=== PATIENT | female | born 1985 | race Caucasian/White ===

== ENCOUNTER 2017-10-21 10:41 | Emergency (ER) | payer SELFPAY ==
[~2017-10-21] VITALS: Ht 157.5 cm; Wt 132.4 kg
[~2017-10-21 10:41] MED LIST: AEROECLIPSE1 EACH MC; ALBUTEROL SULF8.5 GM IH; AMOXICILLIN500 MG PO; B COMPLETE1 EACH PO; CARAFATE100 MG/ML PO; DOXYCYCLINE HY100 M3 PO; LORTAB 5-325 M1 EACH PO; NAPROSYN500 MG PO; NICOTINE PATCH1 EAC2 TD; NOHOMEMEDS; PREDNISONE20 MG PO; PROMETHAZINE HC25 M1 PO; PROVENTIL,2.5 MG/3 M IH; RANITIDINE HCL150 M1 PO; WELLBUTRIN XL300 MG PO; ZITHROMAX250 MG PO; ZOFRAN4 MG PO
[2017-10-21 12:19] LABS: HEMATOCRIT 39.4 % (36.0-46.0); MCH 26.5 PG (29.0-34.0); MCHC 33.2 G/DL (30.0-36.0); MCV 79.8 FL (83-99); MEAN PLAT.VOLUME 10.1 uM^3 (9.5-12.4); PLATELET COUNT 262 K/uL (156-360); RBC DIS.WIDTH-CV 15.5 % (11.8-14.6); RBC DIS.WIDTH-SD 44.7 % (39-53); RED BLOOD COUNT 4.94 M/uL (3.80-5.20); WHITE BLOOD COUNT 8.4 K/uL (4.1-10.2)
[2017-10-21 12:31] LABS: CHLORIDE 106 mEq/L (99-109); POTASSIUM 3.8 mEq/L (3.7-5.4); SODIUM 137 mEq/L (136-147)
[2017-10-21 12:34] LABS: GLUCOSE 90 mg/dL (70-99)
[2017-10-21 12:35] LABS: ANION GAP 10 MEQ/L (2-14)
[2017-10-21 12:36] LABS: TOTAL BILIRUBIN 0.5 mg/dL (0.0-1.0)
[2017-10-21 12:37] LABS: ALKALINE PHOSPHATASE 85 IU/L (3-129); GFR ESTIMATE (CALCULATED) > 59 mL/min/
[2017-10-21 12:38] LABS: UREA NITROGEN (BUN) 8 mg/dL (9-23)
[2017-10-21 13:06] LABS: QUANTITATIVE HCG 29556.3 MIU/ML
[2017-10-21 13:20] LABS: LIPASE 11 U/L (1.0-51.0)
[2017-10-21 14:57] LABS: ADD MIUA? YES; BILIRUBIN NEGATIVE; BLOOD NEGATIVE; COLOR YELLOW ((YELLOW)); GLUCOSE (STRIP) NEGATIVE; KETONES NEGATIVE; LEUKOCYTES NEGATIVE; NITRITE NEGATIVE; PROTEIN (STRIP) NEGATIVE; SPECIFIC GRAVITY 1.014 (1.000-1.030); UROBILINOGEN 0.2 MG/DL (0.2-1.0)
[2017-10-21 15:04] LABS: BACTERIA RARE /HPF; EPITHELIAL CELLS 2+ /HPF; MUCUS TRACE /LPF; RED BLOOD CELLS 0-5 /HPF (0-5); UCUL ADDED? NO; WHITE BLOOD CELLS 0-5 /HPF (0-5)
[2017-10-21] MEDS ORDERED: ZOFRAN ODT4 MG PO (15:10)
[2017-10-21 15:29] VITALS: BP 130/70
== END 2017-10-21 15:30 | disposition home or self-care (01) ==
LOC: EME 10:41
DX: O21.9 Vomiting of pregnancy, unspecified (principal); Z3A.01 Less than 8 weeks gestation of pregnancy; O99.331 Smoking (tobacco) complicating pregnancy, first trimester; F17.200 Nicotine dependence, unspecified, uncomplicated
CPT/HCPCS: 76801; 80053; 81003; 83690; 84702; 85027; 99281; 99284; J2405; J7030

== ENCOUNTER 2017-11-29 13:34 | Outpatient (CLI) | payer SELFPAY ==
[2017-11-29 13:08] VITALS: BP 184/109
[2017-11-29 13:17] VITALS: BP 160/83
[~2017-11-29 13:34] MED LIST changes: +ZOFRAN ODT4 MG PO
[2017-11-29 14:27] LABS: BASOPHIL (%) 0.2 % (0-1); EOSINOPHIL (%) 0.3 % (0-5); EOSINOPHIL COUNT 0.1 K/uL (0-0.3); HEMATOCRIT 38.1 % (36.0-46.0); HEMOGLOBIN 12.6 G/DL (11.9-15.5); IMMATURE GRANULOCYTE (%) 0.4 % (0.0-0.7); LYMPHOCYTE (%) 17.6 % (15-42); LYMPHOCYTE COUNT 2.9 K/uL (1.0-2.8); MCH 26.7 PG (29.0-34.0); MCHC 33.1 G/DL (30.0-36.0); MCV 80.7 FL (83-99); MONOCYTE (%) 3.7 % (3-12); MONOCYTE COUNT 0.6 K/uL (0-0.8); NEUTROPHIL (%) 77.8 % (45-76); NEUTROPHIL COUNT 12.7 K/uL (1.8-6.4); PLATELET COUNT 299 K/uL (156-360); RBC DIS.WIDTH-CV 15.3 % (11.8-14.6); RBC DIS.WIDTH-SD 44.9 % (39-53); RED BLOOD COUNT 4.72 M/uL (3.80-5.20); WHITE BLOOD COUNT 16.3 K/uL (4.1-10.2)
[2017-11-29 14:55] LABS: ALBUMIN 3.9 G/DL (3.2-4.8); CHLORIDE 105 MEQ/L (99-109); POTASSIUM 3.5 MEQ/L (3.7-5.4); SODIUM 137 MEQ/L (136-147); TOTAL BILIRUBIN 0.6 MG/DL (0.0-1.0)
[2017-11-29 16:12] LABS: ALKALINE PHOSPHATASE 67 IU/L (3-129); ALT (GPT) 22 IU/L (3-49); AST (GOT) 18 IU/L (2-34); CREATININE 0.6 MG/DL (0.6-1.3); GFR ESTIMATE (CALCULATED) > 59 mL/min/; GLUCOSE 98 mg/dL (70-99); TOTAL PROTEIN 7.3 G/DL (6.4-8.3); UREA NITROGEN (BUN) 8 mg/dL (9-23)
[2017-11-29 16:13] VITALS: BP 140/78
[2017-11-29] MEDS ORDERED: MOTRIN800 MG PO (16:35)
[2017-11-29] MEDS ORDERED: NORCO 5/3251 TABLET PO (16:35)
[2017-11-29 16:53] LABS: QUANTITATIVE HCG 959.5 MIU/ML
== END 2017-11-29 17:55 | disposition home or self-care (01) ==
LOC: LDRP-OP 13:34 → 2WEST 13:35
PROVIDERS: Obstetrics & Gynecology
DX: O02.1 Missed abortion (principal)
CPT/HCPCS: 76856; 80053; 84702; 85025; 86850; 86900; 86901; 88305; G0378; J7120

== ENCOUNTER 2018-01-31 08:50 | Day surgery (SDC) | payer OTHER ==
[~2018-01-31] VITALS: Ht 157.5 cm; Wt 129.2 kg
[~2018-01-31 08:50] MED LIST changes: +MOTRIN800 MG PO; +NORCO 5/3251 TABLET PO
[2018-01-31 09:41] LABS: BASOPHIL (%) 0.3 % (0-1); EOSINOPHIL COUNT 0.2 K/uL (0-0.3); HEMATOCRIT 40.9 % (36.0-46.0); HEMOGLOBIN 13.6 G/DL (11.9-15.5); IMMATURE GRANULOCYTE (%) 0.2 % (0.0-0.7); LYMPHOCYTE (%) 36.4 % (15-42); LYMPHOCYTE COUNT 3.8 K/uL (1.0-2.8); MCH 26.8 PG (29.0-34.0); MCHC 33.3 G/DL (30.0-36.0); MCV 80.7 FL (83-99); MONOCYTE (%) 5.5 % (3-12); MONOCYTE COUNT 0.6 K/uL (0-0.8); NEUTROPHIL (%) 55.6 % (45-76); NEUTROPHIL COUNT 5.9 K/uL (1.8-6.4); PLATELET COUNT 325 K/uL (156-360); RBC DIS.WIDTH-CV 13.2 % (11.8-14.6); RBC DIS.WIDTH-SD 38.3 % (39-53); RED BLOOD COUNT 5.07 M/uL (3.80-5.20); WHITE BLOOD COUNT 10.5 K/uL (4.1-10.2)
[2018-01-31 09:49] VITALS: BP 159/98
[2018-01-31 10:16] LABS: QUANTITATIVE HCG < 4.0 MIU/ML
[2018-01-31 10:26] LABS: PROLACTIN 24.5 NG/ML
[2018-01-31 10:40] LABS: THYROTROPIN (TSH) 1.5 MIU/L (0.4-5.5)
[2018-01-31] MEDS ORDERED: IBUPROFEN800 MG PO (12:05)
[2018-01-31 12:40] VITALS: BP 134/90
[2018-01-31 13:40] VITALS: BP 154/88
[2018-02-01 12:47] LABS: DRVVT Mixing Study Interp Not Indicated (()); PTT-LA 34 sec (<=40); dRVVT Screen 39 sec (<=45)
[2018-02-03 17:33] LABS: HLA-B27 Antigen+ Negative (Negative)
== END 2018-01-31 13:40 | disposition home or self-care (01) ==
LOC: SDC 08:50
PROVIDERS: Obstetrics & Gynecology
DX: N93.9 Abnormal uterine and vaginal bleeding, unspecified (principal); N84.0 Polyp of corpus uteri; E66.01 Morbid (severe) obesity due to excess calories; Z68.43 Body mass index [BMI] 50.0-59.9, adult; N96 Recurrent pregnancy loss
CPT/HCPCS: 83036; 84146; 84443; 84702; 85025; 85613 90; 85730 90; 86147 90; 86812 90; 86850; 86900; 86901; 88305; J1100; J1170; J1885; J2250; J2405; J2765